=== PATIENT | female | born 1935 | race Asian ===

== ENCOUNTER 2018-02-08 09:23 | Emergency (ER) | payer MEDICAID ==
[~2018-02-08] VITALS: Ht 147.3 cm; Wt 42.2 kg
[2018-02-08 09:28] VITALS: Ht 147.3 cm; Wt 42.2 kg
[2018-02-08 11:32] VITALS: BP 148/85
== END 2018-02-08 11:32 | disposition home or self-care (01) ==
LOC: ED 09:23
DX: S52.502A Unspecified fracture of the lower end of left radius, initial encounter for closed fracture (principal); S52.612A Displaced fracture of left ulna styloid process, initial encounter for closed fracture; W18.30XA Fall on same level, unspecified, initial encounter; Y93.B9 Activity, other involving muscle strengthening exercises; Y92.89 Other specified places as the place of occurrence of the external cause; Y99.8 Other external cause status
CPT/HCPCS: J2001; Q0092